=== PATIENT | male | born 1985 | race Caucasian/White ===

== ENCOUNTER → 2024-12-31 | Outpatient (CLI) | payer OTHER ==
[2024-12-31 14:39] LABS: Basophils # (A) 0.07 X 10*3/uL (0.00-0.10); Basophils % (A) 0.9 %; Eosinophils # (A) 0.32 X 10*3/uL (0.04-0.35); Eosinophils % (A) 4.0 %; HCT 50.9 % (39.6-50.0); HGB 17.0 g/dL (13.0-17.0); Immature Grans, Automated 0.50 %; Lymphocytes # (A) 2.46 X 10*3/uL (0.90-5.00); Lymphocytes % (A) 30.5 %; MCH 29.6 pg (27.0-32.0); MCHC 33.4 g/dL (32.0-37.0); MCV 88.7 FL (80.0-97.0); Monocytes # (A) 0.52 X 10*3/uL (0.20-1.00); Monocytes % (A) 6.5 %; NRBC Per 100 WBC 0 X 10*3/uL (0.00-0.01); Neutrophils # (A) 4.65 X 10*3/uL (1.80-7.70); Neutrophils % (A) 57.6 %; Platelet Count 263 X 10*3/uL (140-440); RBC 5.74 X 10*6/uL (4.40-5.60); RDW 13.7 % (11.5-14.5); WBC 8.06 X 10*3/uL (4.50-10.00)
[2024-12-31 15:15] LABS: BUN/Creat Ratio 8.39 Ratio (12.00-20.00); Blood Urea Nitrogen 15.1 mg/dL (9.0-27.0); Cholesterol 294.00 mg/dL (0.00-200.00); Glucose 103 mg/dL (70-110); HDL Cholesterol 36.20 mg/dL (40.00-60.00); Iron 83 UG/DL (65-175); LDL Cholesterol,Calculated 179.8 mg/dL (0.0-131.0); Total Iron Binding Capacity 351 UG/DL (228-460); Triglycerides 390.00 mg/dL (0.00-149.00); VLDL Calculation 78.00 mg/dL (5.00-40.00)
[2024-12-31 15:16] LABS: ALT 55 U/L (10-49); AST 27 U/L (14-35); Albumin 4.1 g/dL (3.8-4.9); Albumin/Globulin Ratio 1.95 Ratio (1.60-3.17); Alkaline Phosphatase 86 U/L (41-126); Anion Gap 13.20 mmol/L (4.00-12.00); Calcium 8.6 mg/dL (8.7-10.3); Carbon Dioxide 18.8 mmol/L (21.6-31.8); Chloride 109 mmol/L (96-109); Ferritin 296.0 ng/mL (22.0-322.0); Globulin 2.1 g/dL (1.6-3.3); Potassium 4.6 mmol/L (3.5-5.5); Sodium 141 mmol/L (135-145); Total Protein 6.2 g/dL (6.2-8.2)
[2024-12-31 15:17] LABS: T4, Free (Free Thyroxine) 0.90 ng/dL (0.80-1.80); Vitamin B12 768.0 pg/mL (200.0-944.0)
[2024-12-31 15:32] LABS: Follicle Stimulating Hormone 3.8 mIU/mL
[2025-01-01 03:22] LABS: ACTH 25.4 pg/mL (0.00-45.99)
== END | disposition home or self-care (01) ==
LOC: LABWHC1 08:21
PROVIDERS: ATTEND Internal Medicine Endocrinology, Diabetes & Metabolism
DX: R63.5 Abnormal weight gain (principal); R53.83 Other fatigue
CPT/HCPCS: 36415; 80053; 80061; 82024; 82306; 82533; 82607; 82670; 82728; 83001; 83002; 83036; 83540; 83550; 83970; 84146; 84305; 84402; 84403; 84439; 84443; 85025; 86376